=== PATIENT | female | born 1990 | race Caucasian/White ===

== ENCOUNTER 2017-10-16 11:08 | Outpatient (CLI) | END 2017-10-16 15:00 | disposition home or self-care (01) ==

== ENCOUNTER 2017-10-31 10:13 | Outpatient (CLI) | END 2017-10-31 14:04 | disposition home or self-care (01) ==

== ENCOUNTER 2017-11-04 13:39 | Outpatient (CLI) | END 2017-11-04 15:30 | disposition home or self-care (01) ==

== ENCOUNTER 2017-11-13 18:30 | Inpatient (IN) | END 2017-11-16 14:00 | disposition home or self-care (01) | DRG 775 ==